=== PATIENT | male | born 1950 | race Caucasian/White ===

== ENCOUNTER 2017-04-23 07:00 | Emergency (ER) | payer OTHER, BC ==
[~2017-04-23] VITALS: Ht 180.3 cm; Wt 103.1 kg
[~2017-04-23 07:00] MED LIST: LISINOPRIL5 MG PO; MOVE FREE JOIN1 EACH PO; NAPROSYN500 MG PO; NORCO 5/3251 TABLET PO; SIMVASTATIN20 MG PO; VERAPAMIL HCL240 MG PO
[2017-04-23 08:07] LABS: EOSINOPHIL (%) 6.4 % (0-5); EOSINOPHIL COUNT 0.5 K/uL (0-0.3); HEMATOCRIT 46.9 % (38.0-50.0); IMMATURE GRANULOCYTE (%) 0.7 % (0.0-0.7); IMMATURE GRANULOCYTE COUNT 0.1 K/uL; LYMPHOCYTE COUNT 1.8 K/uL (1.0-2.8); MCHC 35.4 G/DL (30.0-36.0); MCV 90.5 FL (86-99); MEAN PLAT.VOLUME 9.4 uM^3 (9.0-12.4); MONOCYTE (%) 10.6 % (3-12); MONOCYTE COUNT 0.7 K/uL (0-0.8); NEUTROPHIL (%) 56.7 % (45-76); PLATELET COUNT 191 K/uL (156-360); RBC DIS.WIDTH-CV 12.5 % (11.8-14.6); RBC DIS.WIDTH-SD 41.4 % (39-53); RED BLOOD COUNT 5.18 M/uL (4.00-5.50)
[2017-04-23 08:16] LABS: PTT 29.1 SEC (25-37)
[2017-04-23 08:22] LABS: CHLORIDE 105 mEq/L (99-109); POTASSIUM 3.8 mEq/L (3.7-5.4); SODIUM 137 mEq/L (136-147)
[2017-04-23 08:23] LABS: GLUCOSE 114 mg/dL (70-99)
[2017-04-23 08:25] LABS: ANION GAP 8 MEQ/L (2-14)
[2017-04-23 08:27] LABS: GFR ESTIMATE (CALCULATED) > 59 mL/min/
[2017-04-23 08:28] LABS: TROP-I INTERPRETATION NEGATIVE; TROPONIN-I < 0.01 ng/mL (0.0-0.30); UREA NITROGEN (BUN) 15 mg/dL (9-23)
[2017-04-23 08:29] LABS: Estimated Average Glucose 111 mg/dL (70-123); HEMOGLOBIN A1c (GLYCOHEMOGLOB) 5.5 % HGB (Below 5.7)
[2017-04-23 08:31] LABS: ADD MIUA? NO; BILIRUBIN NEGATIVE; BLOOD NEGATIVE; COLOR YELLOW ((YELLOW)); GLUCOSE (STRIP) NEGATIVE; KETONES NEGATIVE; LEUKOCYTES NEGATIVE; NITRITE NEGATIVE; PROTEIN (STRIP) NEGATIVE; SPECIFIC GRAVITY 1.016 (1.000-1.030); UCUL ADDED? NO; UROBILINOGEN 0.2 MG/DL (0.2-1.0)
[2017-04-23 08:53] LABS: HDL CHOLESTEROL 35 MG/DL (Desirable>=40); LDL CHOLESTEROL 127 mg/dL (Desirable<100); NON-HDL CHOLESTEROL 154 mg/dL (Desirable<160); TOTAL CHOLESTEROL 189 mg/dL (Desirable<200); TRIGLYCERIDES 137 MG/DL (Normal: <150)
[2017-04-23] MEDS ORDERED: LISINOPRIL5 MG PO (09:25)
[2017-04-23] MEDS ORDERED: VERAPAMIL HCL240 MG PO (09:25)
[2017-04-23 09:46] VITALS: BP 122/80
== END 2017-04-23 09:48 | disposition home or self-care (01) ==
LOC: EME 07:00
PROVIDERS: Emergency Medicine
DX: I10 Essential (primary) hypertension (principal); R51 Headache; E78.5 Hyperlipidemia, unspecified; Z87.891 Personal history of nicotine dependence
CPT/HCPCS: 70450; 71020; 80048; 80061; 81003; 83036; 84484; 85025; 85610; 85730; 93005; 99281; 99284

== ENCOUNTER → 2017-09-15 | Outpatient (CLI) | payer MEDICARE, BC | END | disposition home or self-care (01) | LOC: CDC 11:10 | DX: Z01.810 Encounter for preprocedural cardiovascular examination (principal); R94.31 Abnormal electrocardiogram [ECG] [EKG] | CPT/HCPCS: 93000 ==

== ENCOUNTER 2017-10-05 08:54 | Emergency (ER) | payer MEDICARE, BC ==
[~2017-10-05] VITALS: Ht 180.3 cm; Wt 107.9 kg
[2017-10-05 11:28] VITALS: BP 133/94
== END 2017-10-05 11:33 | disposition home or self-care (01) ==
LOC: EME 08:54
DX: M25.561 Pain in right knee (principal); E78.5 Hyperlipidemia, unspecified; I10 Essential (primary) hypertension; Z87.891 Personal history of nicotine dependence
CPT/HCPCS: 73564; 99281; 99284